=== PATIENT | male | born 1990 | race Native Hawaiian/Other Pacific Islander ===

== ENCOUNTER 2016-04-14 00:04 | Emergency (ER) | payer OTHER ==
[~2016-04-14] VITALS: Ht 180.3 cm; Wt 73.0 kg
[2016-04-14 00:05] VITALS: BP 116/66; PULSE 77; RESP 16; TEMP 97.7; O2SAT 98
[2016-04-14] MEDS ORDERED: MONT10TA2 PO (01:17)
--- NOTE | 2016-04-14 01:29 | PD ---
HPI Chief Complaint: Musculoskeletal Complaint Time Seen by Provider: 01:26 Travel History International Travel<30 days: Yes Contact w/Intl Traveler<30days: Yes Name of Country Traveled to: [place] Traveled to known affect area: No History of Present Illness HPI 25-year-old male presents to emergency department with complaints of calf tenderness. He states that he had taken a trip to [facility] at the end of March and got back to the [place] on 09 April. He also states that he was in a car for approximately 5 hours yesterday. He is does not recall getting out during the 5 hour period. He states that he has pain in the calf from approximately the ankle up into the knee. He states that it was more severe earlier today. He states the pain now is nearly resolved but he came in for evaluation. He is concerned that he may have a blood clot. He denies any chest pain or shortness of breath. No palpitations. He states he had a cold earlier this past week but has not had any symptoms in the last 4 days. He does not smoke or drink. No history of connective tissue disorders or bleeding tendencies. [facility] Past Medical History Narrative Medical gerd GERD: Yes Tetanus Vaccination: < 5 Years Past Surgical History Surgical History: No Previous Surgery Social History Alcohol Use: No Tobacco Use: No Substance Use: No Allergies-Medications (Allergen,Severity, Reaction): Coded Allergies: No Known Allergies (Unverified , 04/14/16) Reported Meds & Prescriptions Reported Meds & Active Scripts Active Reported Singulair (Montelukast Sodium) 10 Mg Tab 10 Mg PO HS Review of Systems Except as stated in HPI: all other systems reviewed are Neg Physical Exam Narrative GENERAL: Well-developed, well-nourished in no acute distress. Nontoxic appearing. HEAD: Normocephalic, atraumatic. EYES: Pupils equal round and reactive. Extraocular motions intact. No scleral icterus. No injection or drainage. ENT: TMs clear without erythema. The external auditory canals clear. Nose: clear . Posterior pharynx is pink and moist. No tonsillar edema or exudate. Uvula midline. Airway patent. NECK: Trachea midline.Supple, nontender, moves head freely. No central bony tenderness or spasm. CARDIOVASCULAR: Regular rate and rhythm without murmurs, gallops, or rubs. RESPIRATORY: Clear to auscultation. Breath sounds equal bilaterally. No wheezes , rales, or rhonchi. GASTROINTESTINAL: Abdomen soft, non-tender, nondistended. No hepato-splenomegaly , or palpable masses. No guarding. EXTREMITIES: No clubbing, cyanosis, or edema. No joint tenderness, effusion, or edema noted. I see no size difference between both legs. I compare the right to the left. There is no Homans sign. Each calf are supple. There is no erythema, warmth or cords. He has good distal pulses compared equally. Normal temperature and color. BACK: Nontender without deformity or crepitance. No flank tenderness. Data Data Last Documented VS Vital Signs Date Time Temp Pulse Resp B/P Pulse Ox O2 Delivery O2 Flow Rate FiO2 04/14/16 00:05 97.7 77 16 116/66 98 Orders D-Dimer (04/14/16 01:23) Labs Laboratory Tests Test 04/14/16 01:30 D-Dimer Quantitative (PE/DVT) LESS THAN 0.19 MG/L FEU MDM Medical Decision Making Medical Screen Exam Complete: Yes Emergency Medical Condition: Yes Medical Record Reviewed: Yes Interpretation(s) Laboratory Tests Test 04/14/16 01:30 D-Dimer Quantitative (PE/DVT) LESS THAN 0.19 MG/L FEU Differential Diagnosis Differential diagnosis: DVT, sprain, strain, spasm Narrative Course Patient's d-dimer is negative at 0.19. The patient is currently pain-free. He is examined and there is no evidence of DVT. He is advised to follow up and recheck in 2 days or sooner if symptoms worsen. Diagnosis Primary Impression: Pain of left calf Patient Instructions: General Instructions Additional Instructions: Rest. Advil for any pain or discomfort. Recheck with a primary care doctor in the next 48 hours or return to the ER if symptoms worsen. Your d-dimer was negative Med/Other Pt SpecificInfo: No Meds Exist/No RX given Disposition: 01 DISCHARGE HOME Condition: Stable Dawson Fraga Apr 14, 2016 01:29
== END 2016-04-14 02:40 | disposition home or self-care (01) ==
LOC: NEPB 00:04
DX: M79.662 Pain in left lower leg (principal); K21.9 Gastro-esophageal reflux disease without esophagitis
CPT/HCPCS: 85379; 99283